=== PATIENT | male | born 1975 | race Caucasian/White ===

== ENCOUNTER 2020-03-31 15:51 | Emergency (ER) | payer MEDICAID ==
[~2020-03-31] VITALS: Ht 180.3 cm; Wt 90.9 kg
[2020-03-31] MEDS ORDERED: METH10 PO (16:37)
[2020-03-31] MEDS ORDERED: ONDANSETRON HCL 4 MG/2 ML VIAL IVP ONE (16:45)
[2020-03-31] MEDS ORDERED: KETOROLAC TROMETHAMINE 30 MG/ML VIAL IVP ONE (16:45)
[2020-03-31] MEDS ORDERED: SODIUM CHLORIDE 0.9% 1,000 ML IV ONE (16:45)
[2020-03-31 17:01] LABS: BASOPHILS % (AUTO) 0.6 % (0.0-2.0); EOSINOPHILS % (AUTO) 0.1 % (1.0-6.0); HEMATOCRIT 45.7 % (41-53); HEMOGLOBIN 15.1 g/dL (13.5-17.5); LYMPHOCYTES % (AUTO) 7.2 % (22.0-44.0); MEAN CORPUSCULAR HEMOGLOBIN 27.2 pg (26.0-34.0); MEAN CORPUSCULAR VOLUME 83 fL (80-100); MONOCYTES # (AUTO) 0.3 K/uL (0.1-1.0); MONOCYTES % (AUTO) 2.2 % (2.0-9.0); NEUTROPHILS # (AUTO) 12.7 K/uL (1.8-7.7); PLATELET COUNT (AUTO) 338 K/uL (150-450); RED BLOOD CELL COUNT(AUTO) 5.54 MIL/uL (4.50-5.90); RED CELL DISTRIBUTION WIDTH 14.4 % (11.5-14.5)
[2020-03-31 17:03] LABS: NEUTROPHILS % (AUTO) 89.9 % (40.0-70.0)
[2020-03-31 17:11] LABS: ANION GAP 11 mmol/L (8-16); CARBON DIOXIDE 27 mmol/L (22-29); CHLORIDE 102 mmol/L (98-107); CREATININE 1.01 mg/dL (0.60-1.30); GLOMERULAR FILTR. RATE CALC > 60 mL/min (>60); GLUCOSE,RANDOM 123 mg/dL (70-110); POTASSIUM 4.2 mmol/L (3.5-5.1); SODIUM SERUM 140 mmol/L (136-145); UREA NITROGEN, BLOOD 20 mg/dL (7-18)
[2020-03-31 17:17] LABS: ALANINE AMINOTRANSFERASE 22 U/L (12-78); ALBUMIN 4.6 g/dL (3.4-5.0); ALKALINE PHOSPHATASE 115 U/L (46-116); ASPARTATE AMINOTRANSFERASE 16 U/L (15-37); BILIRUBIN,TOTAL 0.7 mg/dL (0.1-1.0); LIPASE 91 U/L (73-393); TOTAL PROTEIN, SERUM 9.2 g/dL (6.4-8.2)
[2020-03-31 17:54] VITALS: BP 119/68
== END 2020-03-31 19:04 | disposition home or self-care (01) ==
LOC: EMS 15:51
DX: R10.84 Generalized abdominal pain (principal); R11.2 Nausea with vomiting, unspecified; R68.83 Chills (without fever); F11.90 Opioid use, unspecified, uncomplicated
CPT/HCPCS: 36415; 80053; 83690; 85025; 96361; 96374; 96375; 99284; J1885; J2405; J7030

== ENCOUNTER 2022-05-16 08:45 | Emergency (ER) | payer MEDICAID ==
[~2022-05-16] VITALS: Ht 180.3 cm; Wt 95.5 kg
[~2022-05-16 08:45] MED LIST: METH10 PO
[2022-05-16] MEDS ORDERED: LIDOCAINE 1% 10 ML VIAL ID ONE (10:00)
[2022-05-16] MEDS ORDERED: PERTUSS(ACELL),DIPH,TET VAC/PF 0.5 ML SYRINGE IM. ONE (10:00)
[2022-05-16 11:23] VITALS: BP 127/65
[2022-05-16] MEDS ORDERED: SULF-261 PO (13:31)
[2022-05-16] MEDS ORDERED: CEPH-558 PO (13:32)
== END 2022-05-16 13:38 | disposition home or self-care (01) ==
LOC: EMS 08:45
DX: L02.413 Cutaneous abscess of right upper limb (principal); F17.210 Nicotine dependence, cigarettes, uncomplicated; F12.90 Cannabis use, unspecified, uncomplicated; F15.90 Other stimulant use, unspecified, uncomplicated; F11.90 Opioid use, unspecified, uncomplicated
CPT/HCPCS: 10060; 90471; 90715; 99283; J3490

== ENCOUNTER 2022-08-11 03:52 | Emergency (ER) | payer MEDICAID ==
[~2022-08-11] VITALS: Ht 175.3 cm; Wt 81.0 kg
[~2022-08-11 03:52] MED LIST changes: +CEPH-558 PO; -METH10 PO; +SULF-261 PO
[2022-08-11 03:54] VITALS: BP 113/72
[2022-08-11] MEDS ORDERED: CefTRIAXone SODIUM 1 GM/VIAL IM ONE (05:00)
[2022-08-11] MEDS ORDERED: LIDOCAINE/PF 1% 2 ML VIAL IM ONE (05:00)
[2022-08-11] MEDS ORDERED: LIDOCAINE 1% 10 ML VIAL SQ ONE (05:00)
[2022-08-11] MEDS ORDERED: DOXYCYCLINE HYCLATE 100 MG TABLET PO ONE (05:00)
[2022-08-11] MEDS ORDERED: CEPH-558 PO (22:20)
[2022-08-11] MEDS ORDERED: SULF1TAB42 PO (22:20)
== END 2022-08-11 07:07 | disposition home or self-care (01) ==
LOC: EMS 03:52
DX: L02.414 Cutaneous abscess of left upper limb (principal); F11.10 Opioid abuse, uncomplicated; F17.210 Nicotine dependence, cigarettes, uncomplicated; F12.90 Cannabis use, unspecified, uncomplicated; F15.90 Other stimulant use, unspecified, uncomplicated
CPT/HCPCS: 99283; 10060; 96372; J0696; J3490 ×2

== ENCOUNTER 2022-10-15 22:01 | Emergency (ER) | payer MEDICAID ==
[~2022-10-15] VITALS: Ht 180.3 cm; Wt 90.9 kg
[~2022-10-15 22:01] MED LIST changes: +SULF1TAB42 PO
[2022-10-15] MEDS ORDERED: LIDOCAINE 1% 20 ML VIAL SQ ONE (22:45)
[2022-10-15] MEDS ORDERED: LIDOCAINE 1% 10 ML VIAL ONE (22:47)
[2022-10-15] MEDS ORDERED: LIDOCAINE 1% 10 ML VIAL SQ ONE (23:00)
[2022-10-15 23:11] LABS: BASOPHILS % (AUTO) 0.5 % (0.0-2.0); EOSINOPHILS % (AUTO) 0.8 % (1.0-6.0); HEMATOCRIT 39.4 % (41-53); HEMOGLOBIN 12.5 g/dL (13.5-17.5); LYMPHOCYTES # (AUTO) 2.8 K/uL (1.0-4.8); LYMPHOCYTES % (AUTO) 17.4 % (22.0-44.0); MEAN CORPUSCULAR HEMOGLOBIN 26.2 pg (26.0-34.0); MEAN CORPUSCULAR HGB CONC 31.9 G/dL (31.0-37.0); MEAN CORPUSCULAR VOLUME 82 fL (80-100); MONOCYTES # (AUTO) 0.8 K/uL (0.1-1.0); MONOCYTES % (AUTO) 5.4 % (2.0-9.0); NEUTROPHILS % (AUTO) 75.9 % (40.0-70.0); PLATELET COUNT (AUTO) 403 K/uL (150-450); RED BLOOD CELL COUNT(AUTO) 4.79 MIL/uL (4.50-5.90); RED CELL DISTRIBUTION WIDTH 14.5 % (11.5-14.5)
[2022-10-15 23:22] LABS: COVID AG,FIA SOURCE NASOPHARYNGEAL
[2022-10-15 23:23] LABS: CHLORIDE 102 mmol/L (98-107); SODIUM SERUM 140 mmol/L (136-145)
[2022-10-15 23:24] LABS: ANION GAP 9 mmol/L (8-16); CALCIUM, TOTAL 9.2 mg/dL (8.8-10.5); CARBON DIOXIDE 29 mmol/L (22-29); GLOMERULAR FILTR. RATE CALC > 60 mL/min (>60); GLUCOSE,RANDOM 130 mg/dL (70-110); UREA NITROGEN, BLOOD 13 mg/dL (7-18)
[2022-10-15 23:29] LABS: ALANINE AMINOTRANSFERASE 10 U/L (12-78); ALBUMIN 3.5 g/dL (3.4-5.0); ALKALINE PHOSPHATASE 88 U/L (46-116); ASPARTATE AMINOTRANSFERASE 11 U/L (15-37); BILIRUBIN,TOTAL 0.3 mg/dL (0.1-1.0); TOTAL PROTEIN, SERUM 7.5 g/dL (6.4-8.2)
[2022-10-15] MEDS ORDERED: CEFTAROLINE 600 MG/D5W 250 ML IV ONE (23:30)
[2022-10-15 23:32] LABS: LACTIC ACID 1.9 mmol/L (0.4-2.0)
[2022-10-15 23:43] LABS: INFLUENZA TYPE A NEGATIVE FOR TYPE A (NEGATIVE); INFLUENZA TYPE B NEGATIVE FOR TYPE B (NEGATIVE)
[2022-10-16] MEDS ORDERED: SULF-261 PO
[2022-10-16] MEDS ORDERED: CEPH-558 PO (00:01)
[2022-10-16 00:30] VITALS: BP 125/78
== END 2022-10-16 01:00 | disposition home or self-care (01) ==
LOC: EMS 22:02
DX: L02.413 Cutaneous abscess of right upper limb (principal); F17.210 Nicotine dependence, cigarettes, uncomplicated; F12.90 Cannabis use, unspecified, uncomplicated; F15.90 Other stimulant use, unspecified, uncomplicated; F19.90 Other psychoactive substance use, unspecified, uncomplicated; Z20.822 Contact with and (suspected) exposure to COVID-19
CPT/HCPCS: 99284; 96365; 10060; 87426; 80053; 83605; 85025; 87040; 87804; 36415; 87070; J0712; J3490

== ENCOUNTER 2022-10-17 01:29 | Emergency (ER) | payer MEDICAID ==
[~2022-10-17] VITALS: Ht 177.8 cm; Wt 85.0 kg
[2022-10-17 01:54] VITALS: BP 114/76
== END 2022-10-17 03:08 | disposition home or self-care (01) ==
LOC: EMS 01:30
DX: L02.419 Cutaneous abscess of limb, unspecified (principal); F19.10 Other psychoactive substance abuse, uncomplicated; F17.210 Nicotine dependence, cigarettes, uncomplicated; F12.90 Cannabis use, unspecified, uncomplicated; F15.90 Other stimulant use, unspecified, uncomplicated; F14.90 Cocaine use, unspecified, uncomplicated
CPT/HCPCS: 99281; Z7502

== ENCOUNTER 2023-02-15 07:21 | Emergency (ER) | payer MEDICAID ==
[~2023-02-15] VITALS: Ht 180.3 cm; Wt 88.6 kg
[2023-02-15] MEDS ORDERED: LIDOCAINE 1% 10 ML VIAL SQ ONE (08:00)
[2023-02-15] MEDS ORDERED: POVIDONE-IODINE 10% 120 ML SOLUTION TP ONE (08:00)
[2023-02-15] MEDS ORDERED: IBUP-1492 PO (08:12)
[2023-02-15] MEDS ORDERED: SULF-261 PO (08:12)
[2023-02-15] MEDS ORDERED: CEPH-558 PO (08:12)
[2023-02-15 08:37] VITALS: BP 145/76
== END 2023-02-15 09:02 | disposition home or self-care (01) ==
LOC: EMS 07:27
DX: L02.413 Cutaneous abscess of right upper limb (principal); K02.9 Dental caries, unspecified; F17.210 Nicotine dependence, cigarettes, uncomplicated; F12.90 Cannabis use, unspecified, uncomplicated; F15.90 Other stimulant use, unspecified, uncomplicated
CPT/HCPCS: 99283; 10060; J3490

== ENCOUNTER 2023-08-14 03:29 | Emergency (ER) | payer MEDICAID ==
[~2023-08-14] VITALS: Ht 175.3 cm; Wt 90.0 kg
[~2023-08-14 03:29] MED LIST changes: +IBUP-1492 PO; -SULF1TAB42 PO
[2023-08-14 04:01] VITALS: BP 140/85; PULSE 96; RESP 18; TEMP 98.2
[2023-08-14] MEDS ORDERED: HYDROCODONE/ACETAMINOPHEN 5-325 MG TABLET PO ONE (04:15)
[2023-08-14] MEDS ORDERED: IBUPROFEN 800 MG TABLET PO ONE (04:15)
[2023-08-14] MEDS ORDERED: AMOXICILLIN TRIHYDRATE 250 MG CAPSULE PO ONE (04:15)
[2023-08-14] MEDS ORDERED: IBUP-2280 PO (04:18)
[2023-08-14] MEDS ORDERED: AMOX500C2 PO (04:18)
== END 2023-08-14 04:35 | disposition home or self-care (01) ==
LOC: EMS 03:31
DX: K08.89 Other specified disorders of teeth and supporting structures (principal); F17.210 Nicotine dependence, cigarettes, uncomplicated; F14.90 Cocaine use, unspecified, uncomplicated; F12.90 Cannabis use, unspecified, uncomplicated; F15.90 Other stimulant use, unspecified, uncomplicated
CPT/HCPCS: 99284; Z7502; Z7610